=== PATIENT | male | born 1975 ===

== ENCOUNTER 2018-03-30 18:06 | Emergency (ER) | payer OTHER ==
[2018-03-30] MEDS ORDERED: ACETAMINOPHEN 500 MG TAB PO ONE (19:28)
--- NOTE | 2018-03-30 19:28 | EDPHY ---
H & P Stated Complaint: 1620 today had grubbs/vision issus for ~ 1minute or so and grubbs since Time Seen by Provider: 03/30/18 18:19 HPI/ROS: Chief Complaint: Headache, dizziness HPI: Healthy 43-year-old male had the sudden onset of dizziness, and strange discomfort in the right side of his head. He says it was not really pain but was very uncomfortable. It occurred at 420 this afternoon, approximately 2.5 hr ago. It lasted several seconds. He then developed stay dull headache in the right-sided back of his head. He has had episodes in the past about once a year where he gets the onset of blurry vision which lasts for maybe up to an hour and then he has a dull headache for the rest of the day. He has never seen a physician for this. No numbness or weakness. He did feel lightheaded when this occurred but it has since gone away. No difficulty speaking. Right now his headache is about a 4/10. ROS: 10 systems were reviewed and were negative except those elements noted in the HPI. PMH: Denies Social History: No smoking, no alcohol, no recreational drug use Family History: non-contributory Physical Exam: Gen: Awake, Alert, No Distress HEENT: Nose: no rhinorrhea Eyes: PERRLA, EOMI Mouth: Moist mucosa Neck: Supple, no JVD Chest: nontender, lungs clear to auscultation Heart: S1, S2 normal, no murmur Abd: Soft, non-tender, no guarding Back: no CVA tenderness, no midline tenderness Ext: no edema, non-tender Skin: no rash Neuro: CN II-XII intact, Sensation grossly intact, Strength 5/5 in bilateral upper and lower extremities, normal finger-nose, normal heel-rivers. - Personal History Current Tetanus/Diphtheria Vaccine: Unsure Current Tetanus Diphtheria and Acellular Pertussis (TDAP): Unsure - Medical/Surgical History Hx Asthma: Yes Hx Chronic Respiratory Disease: No Hx Diabetes: No Hx Cardiac Disease: No Hx Renal Disease: No Hx Cirrhosis: No Hx Alcoholism: No Hx HIV/AIDS: No Hx Splenectomy or Spleen Trauma: No Other PMH: asthma - Social History Smoking Status: Never smoked Constitutional: Initial Vital Signs Temperature (C) 37 C 03/30/18 18:24 Heart Rate 54 L 03/30/18 18:24 Respiratory Rate 16 03/30/18 18:24 Blood Pressure 120/77 03/30/18 18:24 O2 Sat (%) 95 03/30/18 18:24 O2 Delivery Mode Room Air Allergies/Adverse Reactions: Sulfa (Sulfonamide Antibiotics) Allergy (Verified 03/30/18 18:36) Home Medications: Medication Instructions Recorded NK [No Known Home Meds] 03/30/18 Medical Decision Making - Diagnostics Imaging Results: Imaging Impressions Head CT 03/30/18 19:06 Impression: 1. Chronic appearing right frontal and nasoethmoid sinus opacification. 2. Negative for intracranial mass or bleed. Results called and discussed with Aleksey Agustin MD on 03/30/2018 19:32. ED Course/Re-evaluation: CT scan results noted. Patient's headache is mild now. He is not any further medicine. He has a completely normal neurologic exam. Given his history of suspect he has been having migraine headaches since he was much younger but they were not severe. Given his history of visual changes with associated headaches. She has no evidence of acute thromboembolic or hemorrhagic event at this time. He has completely returned to baseline. Will discharge with follow- up with primary care physician, return for any concerns. - Data Points Medications Given: Discontinued Medications Acetaminophen (Tylenol) 1,000 mg PO EDNOW ONE Stop: 03/30/18 19:29 Last Admin: 03/30/18 19:38 Dose: Not Given Departure - Departure Disposition: Home, Routine, Self-Care Clinical Impression: Migraine headache Condition: Good Instructions: Migraine Headache (ED) Additional Instructions: Take ibuprofen, 600 mg every 8 hr. You may alternate with acetaminophen, 1000 mg every 8 hr. Follow up with primary care physician in 3-4 days for further evaluation. Return to the emergency department for worsening severe persistent headache, uncontrolled nausea vomiting, fevers, or any other concerns. Referrals: Divina Edward MD [Primary Care Provider] - As per Instructions
[2018-03-30 19:55] VITALS: BP 118/64
== END 2018-03-30 19:50 | disposition home or self-care (01) ==
LOC: CED 18:06
DX: G43.909 Migraine, unspecified, not intractable, without status migrainosus (principal); J45.909 Unspecified asthma, uncomplicated
CPT/HCPCS: 70450-PO; 99284-ER